=== PATIENT | male | born 1980 | race Caucasian/White ===

== ENCOUNTER 2018-04-24 20:25 | Emergency (ER) | payer OTHER ==
--- NOTE | 2018-04-24 21:14 | XRAY Report ---
Reason: chest congestion, fever one week Procedure Date: 04/24/2018 Accession Number: [id number] / [id number] Procedure: XR - Chest 2 View X-Ray CPT Code: 72092 FULL RESULT: EXAM: CHEST RADIOGRAPHY EXAM DATE: 04/24/2018 08:56 PM. CLINICAL HISTORY: Chest congestion, fever one week. COMPARISON: None available. TECHNIQUE: 2 views. FINDINGS: Heart size is normal. Patchy left perihilar opacity likely in the left upper lobe. The right lung is clear. No pleural effusion or pneumothorax visualized. IMPRESSION: Patchy left perihilar opacity likely in the left upper lobe, which may represent pneumonia. Recommend follow-up chest radiographs following treatment to ensure resolution. RADIA
[2018-04-24] MEDS ORDERED: SODIUM CHLORIDE 0.9% 1,000 ML IV ONE ×2 (21:43→22:06)
[2018-04-24 21:53] LABS: HGB - HEMOGLOBIN 14.2 g/dL (14.0-18.0); MEAN CORPUSCULAR HEMOGLOBIN 31.4 pg (27.0-31.0); MEAN CORPUSCULAR HGB CONC 35.6 g/dL (32.0-36.0); MEAN CORPUSCULAR VOLUME 88.1 fL (80.0-94.0); MEAN PLATELET VOLUME 7.9 fL (7.4-11.4); RED BLOOD COUNT 4.52 10^6/uL (4.70-6.10); RED CELL DISTRIBUTION WIDTH 12.2 % (12.0-15.0); WHITE BLOOD COUNT 3.5 x10^3/uL (4.8-10.8)
[2018-04-24 21:57] LABS: ALBUMIN 3.7 g/dL (3.2-5.5); ALBUMIN/GLOBULIN RATIO 1.1 (1.0-2.2); BILIRUBIN,TOTAL 0.5 mg/dL (0.2-1.0); CALCIUM 8.1 mg/dL (8.5-10.3); CREATININE 0.8 mg/dL (0.6-1.2); TOTAL PROTEIN 7.1 g/dL (6.7-8.2)
--- NOTE | 2018-04-24 22:06 | ED Physician Documentation ---
History of Present Illness - Stated complaint Stated Complaint: FLU SX - Chief complaint Chief Complaint: Resp - History obtained from History obtained from: Patient - Additonal information Additional information: 37-year-old male presents the emergency department with 7 days of nasal congestion, fevers, chills, cough, wheezing and body aches which have progressively worsened. No relieving factors. No other associated symptoms. Symptoms are described as moderate Review of Systems Constitutional: reports: Fever, Chills, Myalgias, Fatigue Eyes: denies: Discharge Ears: denies: Ear pain Nose: reports: Congestion Throat: denies: Sore throat Respiratory: reports: Cough GI: denies: Abdominal Pain : denies: Dysuria Skin: denies: Rash Musculoskeletal: denies: Neck pain Neurologic: denies: Generalized weakness PD PAST MEDICAL HISTORY - Past Medical History Past Medical History: Yes - Past Surgical History Past Surgical History: Yes HEENT: Tonsil/Adenoidectomy - Present Medications Home Medications: Ambulatory Orders Medication Instructions Recorded Confirmed Ibuprofen [Motrin] 600 mg PO Q6H PRN #30 tab 05/31/15 Ondansetron Odt [Zofran] 4 mg TL Q6H PRN #10 tablet 05/31/15 Tamsulosin [Flomax] 0.4 mg PO DAILY #7 capsule 05/31/15 oxyCODONE/ACET 5/325 [Percocet 5 1 - 2 each PO Q4-6H PRN #20 tablet 05/31/15 mg/325 mg] Albuterol Sulf [Ventolin Hfa 1 - 2 puffs INH Q4HR PRN #1 inhaler 04/24/18 Inhaler] Doxycycline Hyclate 100 mg PO BID #20 capsule 04/24/18 - Allergies Allergies/Adverse Reactions: Allergies Allergy/AdvReac Type Severity Reaction Status Date / Time No Known Drug Allergies Allergy Verified 05/31/15 02:56 - Social History Does the pt smoke?: No Smoking Status: Never smoker Does the pt drink ETOH?: Yes Does the pt have substance abuse?: No - Immunizations Immunizations are current?: No Immunizations: TDAP >10years/unknown, Other immun not current - POLST Patient has POLST: No PD ED PE NORMAL - General General: Alert and oriented X 3, No acute distress - HEENT HEENT: Atraumatic, PERRL, EOMI, Ears normal - Neck Neck: Supple, no meningeal sign - Cardiac Cardiac: RRR (Regular tachycardia), Strong equal pulses - Respiratory Respiratory: No respiratory distress. No: Clear bilaterally (Bilateral expiratory wheezing) - Abdomen Abdomen: Soft, Non tender - Derm Derm: Normal color - Extremities Extremities: No deformity - Neuro Neuro: Alert and oriented X 3, weight and balance control agent 2-12 intact, Normal speech - Psych Psych: Normal mood Results - Vitals Vitals: Vital Signs - 24 hr 04/24/18 04/24/18 04/24/18 20:32 21:25 21:57 Temperature 38.3 C H Heart Rate 101 H 82 86 Respiratory 18 18 32 H Rate Blood Pressure 131/75 H 98/64 112/70 O2 Saturation 95 96 97 Oxygen O2 Source Room air - EKG (time done) 2152 Rhythm: NSR [place]: Normal Intervals: Normal NM QRS: Normal Ischemia: Normal ST segments - Labs Labs: Laboratory Tests 04/24/18 04/24/18 04/24/18 20:35 21:37 21:37 WBC 3.5 L RBC 4.52 L Hgb 14.2 Hct 39.8 L MCV 88.1 MCH 31.4 H MCHC 35.6 RDW 12.2 Plt Count 164 MPV 7.9 Sodium 135 Potassium 3.8 Chloride 98 L Carbon Dioxide 28 Anion Gap 9.0 BUN 14 Creatinine 0.8 Estimated GFR (MDRD) 108 Glucose 105 H Lactic Acid Calcium 8.1 L Total Bilirubin 0.5 AST 28 ALT 24 Alkaline Phosphatase 65 Total Protein 7.1 Albumin 3.7 Globulin 3.4 Albumin/Globulin Ratio 1.1 Lipase 55 H Influenza A (Rapid) Negative Influenza B (Rapid) Negative 04/24/18 22:18 WBC RBC Hgb Hct MCV MCH MCHC RDW Plt Count MPV Sodium Potassium Chloride Carbon Dioxide Anion Gap BUN Creatinine Estimated GFR (MDRD) Glucose Lactic Acid 0.8 Calcium Total Bilirubin AST ALT Alkaline Phosphatase Total Protein Albumin Globulin Albumin/Globulin Ratio Lipase Influenza A (Rapid) Influenza B (Rapid) - Rads (name of study) CXR Radiology: Final report received, See rad report (IMPRESSION: Patchy left perihilar opacity likely in the left upper lobe, which may represent pneumonia. Recommend follow-up chest radiographs ) PD MEDICAL DECISION MAKING - ED course ED course: The patient has acute pneumonia as the etiology for his symptoms. The patient has no evidence of respiratory distress or sepsis and appears appropriate for discharge with oral antibiotics. The findings and plan were discussed the patient understands and agrees to the plan. I discussed with the patient warning signs and recommended returning for any worsening or any concerns Departure - Departure Disposition: 01 Home, Self Care Clinical Impression: Pneumonia Qualifiers: Pneumonia type: due to unspecified organism Laterality: unspecified laterality Lung location: unspecified part of lung Qualified Code(s): J18.9 - Pneumonia, unspecified organism Condition: Good Instructions: Pneumonia Dc Follow-Up: [facility] [Provider Group] - Within 1 week (Please follow-up with primary care for recheck and a follow-up chest x-ray to make sure the pneumonia has resolved) Prescriptions: Albuterol Sulf [Ventolin Hfa Inhaler] 1 - 2 puffs INH Q4HR PRN #1 inhaler PRN Reason: Shortness Of Air/Wheezing Doxycycline Hyclate 100 mg PO BID #20 capsule Comments: Please return to the emergency department for worsening symptoms or any concerns
[2018-04-24] MEDS ORDERED: DOXYCYCLINE 100 MG TABLET PO STA (22:30)
[2018-04-24] MEDS ORDERED: ALBUTEROL NEB 2.5 MG/3 ML INH STA (22:30)
[2018-04-24] MEDS ORDERED: DEXAMETHASONE 10 MG/ML VIAL PO STA (22:30)
[2018-04-24 22:43] VITALS: BP 118/72
== END 2018-04-24 23:05 | disposition home or self-care (01) ==
LOC: ED 20:25
DX: J18.9 Pneumonia, unspecified organism (principal)
CPT/HCPCS: 36415; 71046; 80053; 83605; 83690; 85027; 87040; 87275; 87276; 93005; 94640; 94664; 96360; 99283; 99284; A9270

== ENCOUNTER 2018-06-08 17:10 | Outpatient (CLI) | payer OTHER ==
--- NOTE | 2018-06-09 11:01 | XRAY Report ---
Reason: PNA Procedure Date: 06/08/2018 Accession Number: [id number] / [id number] Procedure: XR - Chest 2 View X-Ray CPT Code: 66476 FULL RESULT: EXAM: CHEST RADIOGRAPHY EXAM DATE: 06/08/2018 05:19 PM. CLINICAL HISTORY: Pneumonia. COMPARISON: CHEST 2 VIEW 04/24/2018 8:47 PM. TECHNIQUE: 2 views. FINDINGS: Lungs/Pleura: Previous patchy left perihilar airspace opacity has improved/nearly resolved in the interval. Remaining lungs are clear. No effusion or extraventilatory air. Mediastinum: Heart and mediastinal contours are unremarkable. Other: None. IMPRESSION: Interval improvement in left patchy airspace perihilar opacity. RADIA
== END 2018-06-08 17:11 | disposition home or self-care (01) ==
LOC: DI 17:10
PROVIDERS: ATTEND Nurse Practitioner Family
DX: J18.9 Pneumonia, unspecified organism (principal)
CPT/HCPCS: 71046

== ENCOUNTER 2022-05-02 18:20 | Outpatient (CLI) | payer OTHER | END 2022-05-02 23:59 | disposition home or self-care (01) | LOC: LAB 18:20 | PROVIDERS: ATTEND Physician Assistant | DX: J02.9 Acute pharyngitis, unspecified (principal) | CPT/HCPCS: 87070 ==